=== PATIENT | male | born 1930 | race Caucasian/White ===

== ENCOUNTER 2019-05-26 11:02 | Inpatient (IN) | payer OTHER ==
[2019-05-26] VITALS (8 sets, daily range): BP systolic 108–166; BP diastolic 37–66
[~2019-05-26] VITALS: Ht 177.8 cm; Wt 82.2 kg
--- NOTE | ~2019-05-26 | EKG ---
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
--- NOTE | ~2019-05-26 | EKG ---
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
--- NOTE | ~2019-05-26 | EKG ---
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
[2019-05-26 11:40] LABS: BASO % 0.3 % (0.0-1.0); EOS # 0.2 10*3/uL (0.0-0.4); EOS % 2.6 % (1.0-4.0); HEMOGLOBIN 11.3 g/dl (14.0-18.0); LYMPH # 0.9 10*3/uL (1.3-4.4); LYMPH % 16.1 % (27.0-41.0); MEAN CELL VOLUME 92.7 fl (80.0-94.0); MEAN CORPUSCULAR HGB 28.3 pg (27.0-31.0); MEAN CORPUSCULAR HGB CONC 30.5 g/dl (33.0-37.0); MEAN PLATELET VOLUME 11.2 fl (9.6-12.3); MONO # 0.6 10*3/uL (0.1-1.0); MONO % 10.4 % (3.0-9.0); NEUT # 4.1 10*3/uL (2.3-7.9); NEUT % 70.4 % (47.0-73.0); PLATELET COUNT AUTOMATED 147 10*3/uL (130-400); RED BLOOD COUNT 3.99 10*6/uL (4.50-5.90); RED CELL DISTRI WIDTH 14.7 % (0-14.5); RETICULOCYTE % 1.38 % (0.50-2.50); WHITE BLOOD COUNT 5.9 10*3/uL (4.8-10.8)
[2019-05-26 11:49] LABS: IRON 61 ug/dL (65-175); TOTAL IRON BINDING CAPACITY 314 ug/dl (250-450)
[2019-05-26 11:51] LABS: ALBUMIN 3.8 gm/dl (3.1-4.5); CREATININE 2.15 mg/dL (0.70-1.30); POTASSIUM 5.5 mmol/L (3.5-5.1); TOTAL PROTEIN 7.2 gm/dL (6.4-8.2)
[2019-05-26 11:54] LABS: TROPONIN I 0.438 ng/ml (<0.045)
[2019-05-26] MEDS ORDERED: NOVOLOG10 ML SC (17:10)
[2019-05-26] MEDS ORDERED: LANTUS SOL100 UNIT/1 SC (17:11)
[2019-05-26] MEDS ORDERED: LIPITOR40 MG PO (17:11)
[2019-05-26] MEDS ORDERED: LASIX10 MG/ML PO (17:13)
[2019-05-26] MEDS ORDERED: NITROSTAT0.4 MG SL (17:14)
[2019-05-26] MEDS ORDERED: ASPIR 8181 MG PO (17:14)
[2019-05-26] MEDS ORDERED: LOPRESSOR50 M1 PO (17:15)
[2019-05-26] MEDS ORDERED: COZAAR25 M1 PO (17:15)
[2019-05-27] VITALS: BP 119/42
[2019-05-27 06:30] LABS: BASO % 0.4 % (0.0-1.0); EOS # 0.3 10*3/uL (0.0-0.4); EOS % 4.8 % (1.0-4.0); HEMATOCRIT 32.8 % (42.0-52.0); LYMPH # 0.9 10*3/uL (1.3-4.4); MEAN CELL VOLUME 92.4 fl (80.0-94.0); MEAN CORPUSCULAR HGB 28.2 pg (27.0-31.0); MEAN CORPUSCULAR HGB CONC 30.5 g/dl (33.0-37.0); MEAN PLATELET VOLUME 11.6 fl (9.6-12.3); MONO # 0.6 10*3/uL (0.1-1.0); MONO % 10.6 % (3.0-9.0); NEUT # 3.5 10*3/uL (2.3-7.9); PLATELET COUNT AUTOMATED 116 10*3/uL (130-400); RED BLOOD COUNT 3.55 10*6/uL (4.50-5.90); RED CELL DISTRI WIDTH 14.6 % (0-14.5); WHITE BLOOD COUNT 5.2 10*3/uL (4.8-10.8)
[2019-05-27 07:04] LABS: ALBUMIN 3.1 gm/dl (3.1-4.5); CREATININE 2.05 mg/dL (0.70-1.30); PHOSPHOROUS 3.9 mg/dL (2.5-4.9); TOTAL PROTEIN 6.1 gm/dL (6.4-8.2)
[2019-05-27 07:11] LABS: FREE T4 0.97 ng/dl (0.76-1.46); THYROID STIM HORMONE (HS) 3.39 uIU/ml (0.358-4.75)
[2019-05-27 07:56] LABS: VITAMIN D, 25-HYDROXY 16.3 ng/mL (30-100)
[2019-05-27 08:30] VITALS: BP 130/60
[2019-05-27 12:00] VITALS: BP 142/60
[2019-05-27] MEDS ORDERED: CLOPIDOGREL75 MG PO (12:35)
[2019-05-27] MEDS ORDERED: IMDUR SA30 MG PO (12:35)
== END 2019-05-27 14:55 | disposition home or self-care (01) | DRG 313 ==
LOC: ED 11:02 → EDHOLD 12:52 → 5E 13:55
PROVIDERS: Emergency Medicine; Internal Medicine; ADMIT Family Medicine
DX: R07.9 Chest pain, unspecified (principal); N18.4 Chronic kidney disease, stage 4 (severe); E11.22 Type 2 diabetes mellitus with diabetic chronic kidney disease; E11.40 Type 2 diabetes mellitus with diabetic neuropathy, unspecified; R00.1 Bradycardia, unspecified; I12.9 Hypertensive chronic kidney disease with stage 1 through stage 4 chronic kidney disease, or unspecified chronic kidney disease; I25.10 Atherosclerotic heart disease of native coronary artery without angina pectoris; E78.5 Hyperlipidemia, unspecified; D72.810 Lymphocytopenia; E87.5 Hyperkalemia; E87.8 Other disorders of electrolyte and fluid balance, not elsewhere classified; D69.6 Thrombocytopenia, unspecified; E55.9 Vitamin D deficiency, unspecified; Z79.84 Long term (current) use of oral hypoglycemic drugs; I25.2 Old myocardial infarction; Z95.5 Presence of coronary angioplasty implant and graft; Z95.1 Presence of aortocoronary bypass graft; Z79.82 Long term (current) use of aspirin